=== PATIENT | male | born 1935 | race Caucasian/White ===

== ENCOUNTER 2016-12-30 12:29 | Observation (INO) | payer MEDICARE, BC ==
--- NOTE | ~2016-12-30 | DS ---
Discharge Summary [facility] [address] [place]. [address] NAME: ALDAIR HILL : 37 STATUS : DIS Wilver PAT#: [id number] AGE: 81 ADM/REG DATE : 12/30/16 MR#: [id number] REPORT SERV DATE: 01/01/17 DICTATED BY: JR. HASTINGS WILLIAM JOHN DATE: 12/31/16 REPORT STATUS : Draft TRANSCRIBED BY: MODL DATE: 12/31/16 ADMISSION DATE: 12/30/2016 DISCHARGE DATE: 12/31/2016 DISCHARGE DIAGNOSES: 1. Clostridium difficile colitis. 2. Hematochezia. 3. Nausea, vomiting, and diarrhea. 4. History of prostate cancer with metastases. 5. History of hypertension. OPERATIONS, PROCEDURES, AND TREATMENTS: Include: 1. CT of the abdomen and pelvis done 12/30/2016, which showed known metastatic carcinoma with stable adenopathy in the lower chest, abdomen, and pelvis without bowel obstruction or inflammation. There were colonic diverticula without diverticulitis. 2. C. diff which was positive. 3. Cryptosporidium was negative. Giardia was negative. Fecal leukocytes were negative. CONSULTING PHYSICIAN: Dr. Blake Ford, who plans colonoscopy after this dictation is completed. DISCHARGE MEDICATIONS: Include: 1. Multivitamin tablet orally daily. 2. Zofran 8 mg orally daily p.r.n. 3. Zoloft 100 mg orally daily. 4. Vancomycin 125 mg per 5 mL, give 125 mg q.6 hours for 14 days. 5. Prednisone 10 mg orally daily. 6. Norvasc 5 mg orally daily. 7. Phenergan 25 mg orally daily as needed. 8. Calcium plus D, one tablet orally daily. 9. Naprosyn 220 mg orally daily as needed. 10.Nasonex two sprays in each nostril daily. 11.Polyethylene glycol solution ophthalmologic twice a day p.r.n. HOSPITAL COURSE: The patient is a 81-year-old white male who presented to the emergency room on 12/30/2016 with complaint of nausea, vomiting, and bloody stool. The patient is quite vigorous and said that on the afternoon of admission he developed nausea, vomiting, followed by diarrhea which turned bloody. The patient's exam was overall unremarkable. CT of the abdomen and pelvis as detailed above. His admission hemoglobin was 13.5. The patient is admitted to the Clinical Decision Unit and was seen in consultation by Gastroenterology who recommended infectious labs of which Clostridium difficile became positive. The patient was started on oral vancomycin with near resolution of his diarrhea by the next morning. The patient is scheduled for colonoscopy later today. After that procedure, he will be discharged home if okay with GI. The remainder of the patient's health problems remained stable and were not addressed. For discharge exam and laboratory, Discharge Summary [address] [address] NAME: ALDAIR HILL : 37 STATUS : DIS Wilver PAT#: [id number] AGE: 81 ADM/REG DATE : 12/30/16 MR#: [id number] REPORT SERV DATE: 01/01/17 DICTATED BY: JR. HASTINGS WILLIAM JOHN DATE: 12/31/16 REPORT STATUS : Draft TRANSCRIBED BY: MAUREEN DATE: 12/31/16 please see daily progress note. DISCHARGE DIET: Regular. ACTIVITY: As tolerated. FOLLOWUP: With Dr. Vee Fairchild in two to four weeks. This discharge took less than 30 minutes. ALFREDA/MAUREEN Blake Hastings Jr, MD / [id number] CC: Blake Hastings Jr, MD Helen Furr, M.D.
--- NOTE | ~2016-12-30 | HP ---
History And Physical [address] [address] NAME: ALDAIR HILL : 37 STATUS : ADM Wilver PAT#: [id number] AGE: 81 ADM/REG DATE : 12/30/16 MR#: [id number] REPORT SERV DATE: 12/30/16 DICTATED BY: MARTIN PERRY DATE: 12/30/16 REPORT STATUS : Draft TRANSCRIBED BY: MODL DATE: 12/30/16 DATE OF ADMISSION: 12/30/2016 CHIEF COMPLAINT: Bright red blood per rectum. HISTORY OF PRESENT ILLNESS: The patient is a very pleasant 81-year-old white male. He reports he was in his usual state of health until yesterday afternoon when he developed intractable nausea and vomiting. He vomited for several hours. Vomiting resolved and he developed what he thought was diarrhea. He noted, however, he had bloody stools with clots present. He finally became concerned and reported to the ER this morning. He did not have any documented fevers he states. He did not have much in the way of abdominal pain. He had some soreness. His is ill. He is feeling well. He has had no ill contacts. They seem to eat the same foods. There was a concern of food poisoning since he had nausea and vomiting. His last colonoscopy he states was about 2-1/2 years ago. It was done in [place]. He does not have an established GI doctor. He does suffer from metastatic prostate cancer for which he has failed previous treatments and now is off all treatment. PAST MEDICAL HISTORY: 1. Hypertension. 2. Metastatic prostate CA. 3. Depression. 4. Osteoarthritis. 5. Colon polyps. SURGICAL HISTORY: Bilateral inguinal hernia repair, right total knee arthroplasty, and a left wrist surgery. FAMILY HISTORY: Positive for hypertension and CVA. ALLERGIES: NO KNOWN DRUG ALLERGIES. SOCIAL HISTORY: He quit smoking 40+ years ago. He only uses occasional alcohol at this point. He is . His is at bedside. HOME MEDICATIONS: Reviewed and attached. REVIEW OF SYSTEMS: Full 10-point review of systems was obtained, pertinent positives are mentioned in the HPI. PHYSICAL EXAMINATION: VITAL SIGNS: Current blood pressure is 129/67. Other vital signs; temperature is 98.3, sat is 94, respiratory rate is 20. Pulse is in the 70s, by my count, it is recorded as 16 and the vitals it is incorrect. I auscultated his pulse while in the room as he was not hooked up to the monitor. GENERAL: Well-developed white male, in no apparent distress. HEENT: Normocephalic, atraumatic. Throat is clear. History And Physical [facility] [address] [place]. [address] NAME: ALDAIR HILL : 37 STATUS : ADM Wilver PAT#: [id number] AGE: 81 ADM/REG DATE : 12/30/16 MR#: [id number] REPORT SERV DATE: 12/30/16 DICTATED BY: MARTIN PERRY DATE: 12/30/16 REPORT STATUS : Draft TRANSCRIBED BY: MAUREEN DATE: 12/30/16 NECK: Supple. HEART: Regular rate and rhythm. LUNGS: Grossly clear. ABDOMEN: Soft, nondistended, nontender. Normoactive bowel sounds are noted. He was Hemocculted by the ER which was positive. I also saw picture of the actual stool which was bright red blood with clots present. EXTREMITIES: Warm and dry and he has no peripheral edema. LABORATORY AND X-RAY DATA: Urinalysis shows [address] abdomen and pelvis shows known metastatic prostate cancer with stable adenopathy in the lower chest, abdomen, and pelvis. No bowel obstruction or bowel wall inflammation. There are diverticula, but no diverticulitis. Sodium is 140, potassium 3.7, chloride is 106, CO2 is 23, BUN and creatinine 19 and 0.76, glucose is 131. LFTs were normal. Albumin is 3.4. Lipase is normal. CBC: H and H are 13.5 and 38, white count is 14.7, platelets are 156. ASSESSMENT AND PLAN: 1. Nausea and vomiting with associated diarrheal stools, now with bright red blood per rectum. Nausea and vomiting have resolved. Certainly, given the time course of events, it sounds like this could be an infectious etiology since he had nausea and vomiting, then developed diarrheal stools with blood present. We will send off stool for Clostridium difficile, ova and parasite, and culture. Must also consider just simple lower gastrointestinal bleeding. However, this does not explain the nausea and vomiting very well. I am going to hydrate him overnight. Place him on a proton pump inhibitor. Hold nonsteroidal anti-inflammatory drugs and any aspirin products. We will hydrate him aggressively. We will transfuse for any hemoglobin less than 8. I am going to hold off on empiric antibiotics for now. We will have Gastroenterology see him in consultation and make further plan. We will keep him n.p.o. for now. 2. History of metastatic prostate cancer. 3. History of hypertension. Holding antihypertensives given bright red blood per rectum. 4. Deep venous thrombosis prophylaxis. Hold off on anticoagulants for now since he has active bleeding. 5. Disposition. Pending above. BRITTNI/MAUREEN Martin Perry M.D. / [id number] CC: Martin Perry M.D. History And Physical [address] [address] NAME: ALDAIR HILL : 37 STATUS : ADM Wilver PAT#: [id number] AGE: 81 ADM/REG DATE : 12/30/16 MR#: [id number] REPORT SERV DATE: 12/30/16 DICTATED BY: MARTIN PERRY DATE: 12/30/16 REPORT STATUS : Draft TRANSCRIBED BY: MAUREEN DATE: 12/30/16 Daren Reddy IV, M.D.
--- NOTE | ~2016-12-30 | EGD ---
EGD REPORT [facility] [address] [place] [address] NAME: KULDIP HILL : 37 STATUS : ADM Wilver PAT#: [id number] AGE: 81 ADM/REG DATE : 12/30/16 MR#: [id number] REPORT SERV DATE: 12/31/16 DICTATED BY: BLAKE CUNNINGHAM DATE: 12/31/16 REPORT STATUS : Draft [facility]ANSCR[facility]ED BY: [facility] DATE: 12/31/16 Endoscopy Center Patient Name: Kuldip Hill Date of : 1935 Attending MD: BLAKE CUNNINGHAM MD Procedure Date No Time: 12/31/2016 Procedure: Colonoscopy Indications: Hematochezia Referring MD: BELKIS VALDOVINOS Medicines: Monitored Anesthesia Care Complications: No immediate complications. Estimated blood loss: Minimal. Procedure: Pre-Anesthesia Assessment: - ASA Grade Assessment: III - A patient with severe systemic disease. After I obtained informed consent, the scope was passed under direct vision. Throughout the procedure, the patient's blood pressure, pulse, and oxygen saturations were monitored continuously. The CF [id number] was introduced through the anus and advanced to the cecum, identified by appendiceal orifice and ileocecal valve. The colonoscopy was performed without difficulty. The patient tolerated the procedure well. The quality of the bowel preparation was fair. Findings: The perianal and digital rectal examinations were normal. Pertinent negatives include no palpable rectal lesions. Diffuse moderate inflammation characterized by congestion (edema), erythema, friability, loss of vascularity and mucus was found from 30 to 60 cm proximal to the anus. Biopsies were taken with a cold forceps for histology. Estimated blood loss was minimal. A semi-sessile, non-bleeding polyp was found in the cecum. The polyp was 5 mm in size. Polypectomy was not attempted due to an incomplete examination, inadequate bowel preparation and poor endoscopic visualization. Multiple medium-mouthed diverticula were found in the sigmoid colon. The exam was otherwise without abnormality on direct and retroflexion views. Impression: - Diffuse moderate inflammation was found from 30 to 60 cm proximal to the anus. Biopsied. - One 5 mm, non-bleeding polyp in the cecum. Resection not attempted given bleeding and suboptimal prep. - Diverticulosis in the sigmoid colon. EGD REPORT [address] [address] NAME: KULDIP HILL : 37 STATUS : ADM Wilver PAT#: [id number] AGE: 81 ADM/REG DATE : 12/30/16 MR#: [id number] REPORT SERV DATE: 12/31/16 DICTATED BY: BLAKE CUNNINGHAM DATE: 12/31/16 REPORT STATUS : Draft TRANSCRIBED BY: [employer] DATE: 12/31/16 - The examination was otherwise normal on direct and retroflexion views. Recommendation: - Soft diet today. - Vancocin (vancomycin) 125 mg PO QID for 2 weeks. - Repeat colonoscopy within 6-12 months for polyp resection and surveillance Procedure Code(s): --- Professional --- 18227, Colonoscopy, flexible, proximal to splenic flexure; with biopsy, single or multiple Diagnosis Code(s): --- Professional --- K52.9, Noninfective gastroenteritis and colitis, unspecified D12.0, Benign neoplasm of cecum K57.30, Diverticulosis of large intestine without perforation or abscess without bleeding K92.1, Melena CPT copyright 2013 [employer]. All rights reserved. The codes documented in this report are preliminary and upon border patrol officer review may be revised to meet current compliance requirements. Blake Cunningham MD BLAKE CUNNINGHAM MD 12/31/2016 11:58 AM This report has been signed electronically. Number of Addenda: 0 Note Initiated On: 12/31/2016 11:14 AM Scope Withdrawal Time 0 hours 8 minutes 33 seconds [id number] [place] [address] [id number]
--- NOTE | ~2016-12-30 | CN ---
Consultation Report [facility] [address] [place]. [address] NAME: KULDIP HILL : 37 STATUS : ADM Wilver PAT#: [id number] AGE: 81 ADM/REG DATE : 12/30/16 MR#: [id number] REPORT SERV DATE: 12/30/16 DICTATED BY: ANNIKA TOLEDO DATE: 12/30/16 REPORT STATUS : Draft TRANSCRIBED BY: MODLinden DATE: 12/30/16 GI CONSULTATION. DATE OF CONSULTATION: 12/30/2016 REASON FOR CONSULTATION: Evaluation and management of lower GI bleeding. HISTORY OF PRESENT ILLNESS: Mr. Kuldip Hill is a very pleasant, 81-year-old male patient, who was admitted on 12/30/2016 for a chief complaint of nausea, vomiting as well as bright red blood per rectum. The patient gives history of symptom onset yesterday, 12/29/2016. He states initially in the early part of the day, he had nausea with vomiting. The states he vomited up everything that he has had for lunch. He had some mild vague abdominal discomfort, lower abdominal cramps. He started to have diarrhea. He states he had multiple diarrheal stools, was up and down all throughout the night, began to pass nothing, but bright red blood per rectum. Secondary to his passage of blood, he came to the hospital for further evaluation. He had a CT scan done on admission without contrast, this showed that the patient had known metastatic prostate carcinoma with stable adenopathy in the lower chest, abdomen, and pelvis. No bowel obstruction or bowel wall inflammation. He has diverticulosis without any active diverticulitis being seen. He had admission white blood cell count of 14.7 with a hemoglobin of 13.5, hematocrit of 38.0. He states that he has not had any known fevers. He has no chilling. He denies melena. He states he did not throw up blood or coffee-ground emesis. He has not been around any sick contacts. He states from time to time, he has nausea secondary to undergoing chemotherapy for his prostate cancer, but typically, he has no problems with nausea, vomiting, GERD, or indigestion. He takes Aleve, but very infrequently. Presently, he is feeling better. He has not had any nausea, but he still has a little bit of abdominal discomfort. I have discussed with the patient and the . We will plan for colonoscopy to be done tomorrow by Dr. Ford. Risks, benefits, alternatives, and complications were detailed for him to include, but not limited to risk of bleeding, perforation, infection, reaction to medication, as well as cardiac and pulmonary side effects. He gives consent to proceed. The patient states that he has had multiple colonoscopies in the past while living in [place]. He and his recently moved here two years ago secondary to warmer climate. He cannot remember anything abnormal other than colon polyps, which were removed. He is unsure of what type they were. He has not had a colonoscopy or any GI evaluation since being in the [facility]. PAST MEDICAL HISTORY: Positive for diverticulosis; colon polyps; hypertension; depression; prostate cancer, treated 10-15 years ago with radiation seeds; GERD; osteoarthritis. SURGICAL HISTORY: Bilateral inguinal hernia repair, right total knee replacement, left wrist fracture. PROCEDURES: Colonoscopies. FAMILY HISTORY: Noncontributory from a gastrointestinal standpoint. Consultation Report [address] [address] NAME: KULDIP HILL : 37 STATUS : ADM Wilver PAT#: [id number] AGE: 81 ADM/REG DATE : 12/30/16 MR#: [id number] REPORT SERV DATE: 12/30/16 DICTATED BY: ANNIKA TOLEDO DATE: 12/30/16 REPORT STATUS : Draft TRANSCRIBED BY: MAUREEN DATE: 12/30/16 ALLERGIES: NO KNOWN DRUG ALLERGIES. HOME MEDICATIONS: Norvasc, Nasonex, multivitamin, Aleve, Zofran, Systane, prednisone, Phenergan, Zoloft, and calcium. REVIEW OF SYSTEMS: A 10-point review of systems has been obtained with pertinent positives being addressed in the history of present illness. PHYSICAL EXAMINATION: VITAL SIGNS: Temperature is 98.3, pulse of 76, respiratory rate of 16, blood pressure of 128/72. NEURO: Reveals an alert, male, resting in bed with no focal deficits being noted. GENERAL: Cooperative, in no apparent distress. Awake, alert, and oriented x3. HEAD, EARS, EYES, NOSE, AND THROAT: Anicteric. Pupils equal, round, reactive to light and accommodation. Normocephalic and atraumatic. NECK: No JVD. No palpable nodes. LUNGS: Clear anteriorly with normal respiratory effort exhibited. Equal expansion. CARDIOVASCULAR SYSTEM: Regular rate and rhythm. S1 and S2. No murmurs, rubs, gallops, S3, or S4 appreciated. ABDOMEN: Soft, nontender, nondistended with no rebound, guarding, or organomegaly elicited on exam. He has active bowel sounds in all four quadrants. EXTREMITIES: No edema. Normal distal pulses. SKIN: Warm, dry, and intact. PSYCHIATRIC: Normal mood. Normal affect. PERTINENT LABORATORY DATA: Sodium 140, potassium 3.7, BUN is 19, creatinine 0.76. White count 14.7, hemoglobin 13.5, hematocrit 38. ASSESSMENT: 1. Lower gastrointestinal bleeding. Differential diagnosis includes diverticular bleed, colitis, proctitis, neoplasm. 2. Nausea and vomiting, resolved. 3. Leukocytosis, question reactive. 4. Known prostate cancer with metastatic disease. PLAN: 1. Obtain stool studies for C diff, ova and parasites, and cultures and sensitivities as well as white blood cells. 2. Clear liquid diet. N.p.o. after midnight. 3. GoLYTELY bowel prep. 4. Colonoscopy in the morning with Dr. Ford. 5. Add PPI. 6. Scheduled Zofran. Consultation Report [address] [place]. [address] NAME: KULDIP HILL : 37 STATUS : ADM Wilver PAT#: [id number] AGE: 81 ADM/REG DATE : 12/30/16 MR#: [id number] REPORT SERV DATE: 12/30/16 DICTATED BY: ANNIKA TOLEDO DATE: 12/30/16 REPORT STATUS : Draft TRANSCRIBED BY: MAUREEN DATE: 12/30/16 7. Follow labs. Other recommendations to follow endoscopy. MESFIN/MAUREEN CONCHIS Macias / [id number] CC: Daren Hinojosa M.D.
[2016-12-30 10:21] LABS: BASOPHILS 0.1 %; BASOPHILS ABSOLUTE 0.01 10/3/uL (0.0-0.16); EOSINOPHILS 0.3 %; EOSINOPHILS ABSOLUTE 0.04 10/3/uL (0.0-0.53); IMMATURE GRANULOCYTES 0.4 %; IMMATURE GRANULOCYTES ABSOLUTE 0.06 10/3/uL (0.0-0.11); LYMPHOCYTES 2.8 %; LYMPHOCYTES ABSOLUTE 0.41 10/3/uL (0.67-4.30); MEAN CORPUS HGB CONC 35.5 g/dL (32.0-36.0); MEAN CORPUSCULAR HEMOGLOB 31.4 pg (26.0-34.0); MEAN PLATELET VOLUME 9.6 fL (9.2-13.0); MONOCYTES 6.2 %; MONOCYTES ABSOLUTE 0.91 10/3/uL (0.21-1.20); NEUTROPHILS 90.2 %; NEUTROPHILS ABSOLUTE 13.31 10/3/uL (2.02-8.40); PLATELET COUNT 156 10/3/uL (150-400); RBC DISTRIBUTION WIDTH 15.4 % (12.0-16.0)
[2016-12-30 10:22] LABS: ER CBC TAT 0 Hrs 05 Mins; HEMOGLOBIN 13.5 g/dL (13.6-17.8); MEAN CORPUSCULAR VOLUME 88.4 fL (80-100); WHITE BLOOD CELLS 14.7 10/3/uL (4.5-10.5)
[2016-12-30 10:23] LABS: MANUAL DIFF NO %
[2016-12-30 10:32] LABS: ALBUMIN 3.4 G/DL (3.5-5.0); CHLORIDE, SERUM 106 MMOL/L (96-112); CO2 (CARBON DIOXIDE) 23 MMOL/L (24-34); CREATININE 0.76 MG/DL (0.70-1.30); GFR AFRICAN AMERICAN 101 ML/MIN (>=60); GFR NON AFRICAN AMERICAN 87 ML/MIN (>=60); POTASSIUM, SERUM 3.7 MMOL/L (3.5-5.3); SGOT(AST) 49 U/L (5-40); SGPT(ALT) 30 U/L (5-65); SODIUM, SERUM 140 MMOL/L (135-148)
[2016-12-30 10:34] LABS: A/G RATIO 1.1 (0.7-1.9); ALKALINE PHOSPHATASE 67 U/L (45-117); BUN (BLOOD UREA NITROGEN) 19 MG/DL (6-23); CALCIUM, SERUM 8.6 MG/DL (8.5-10.4); GLOBULIN 3.2 G/DL (2.5-4.1); GLUCOSE, SERUM 131 MG/DL (60-99); TOTAL BILIRUBIN 1.1 MG/DL (0-1.2); TOTAL PROTEIN 6.6 G/DL (6.0-8.5)
[2016-12-30 12:22] LABS: WBC (NOT ORDERED) (RFLEX) 0 (0-5)
[~2016-12-30 12:29] MED LIST: ALEVE220 MG PO; CHEMO INFUSION IV; CLARIT10 PO; DEX4 PO; NEULASTA SC; NORV5 PO; PR25 PO; ZOFRAN8 PO; ZOL100 PO
[2016-12-30 12:38] LABS: ASCORBIC ACID (UR NOT ORDER) NEG (NEG); BILIRUBIN, URINE NEGATIVE (NEG); KETONE, URINE NEGATIVE (NEG); LEUKOCYTE ESTERASE(NOT OR NEG (NEG); NITRITE (URINE) NEG (NEG)
[2016-12-30] MEDS ORDERED: ZOL100 PO (13:04)
[2016-12-30] MEDS ORDERED: NORV5 PO (13:04)
[2016-12-30] MEDS ORDERED: P10 PO (13:04)
[2016-12-30] MEDS ORDERED: ZOFRAN8 PO (13:05)
[2016-12-30] MEDS ORDERED: PR25 PO (13:05)
[2016-12-30] MEDS ORDERED: NASONEX NAS (13:06)
[2016-12-30] MEDS ORDERED: ALEVE220 MG PO (13:06)
[2016-12-30] MEDS ORDERED: MULTIVIT/MIN PO (13:06)
[2016-12-30] MEDS ORDERED: CALCIUM + VIT D PO (13:06)
[2016-12-30] MEDS ORDERED: SYSTANE OPH (13:07)
[2016-12-30 17:32] LABS: HEMATOCRIT 35.5 % (40.0-51.0); HEMOGLOBIN 12.3 g/dL (13.6-17.8)
[2016-12-31 02:15] LABS: HEMATOCRIT 39.2 % (40.0-51.0); HEMOGLOBIN 13.5 g/dL (13.6-17.8)
[2016-12-31 04:57] LABS: BASOPHILS 0.2 %; EOSINOPHILS 0.6 %; EOSINOPHILS ABSOLUTE 0.07 10/3/uL (0.0-0.53); HEMOGLOBIN 11.9 g/dL (13.6-17.8); IMMATURE GRANULOCYTES 0.3 %; LYMPHOCYTES 7.3 %; LYMPHOCYTES ABSOLUTE 0.83 10/3/uL (0.67-4.30); MEAN CORPUS HGB CONC 34.8 g/dL (32.0-36.0); MEAN CORPUSCULAR HEMOGLOB 31.8 pg (26.0-34.0); MEAN PLATELET VOLUME 9.7 fL (9.2-13.0); MONOCYTES 6.4 %; MONOCYTES ABSOLUTE 0.73 10/3/uL (0.21-1.20); NEUTROPHILS 85.2 %; NEUTROPHILS ABSOLUTE 9.72 10/3/uL (2.02-8.40); PLATELET COUNT 142 10/3/uL (150-400); RBC DISTRIBUTION WIDTH 15.2 % (12.0-16.0); RED CELL COUNT 3.74 10/6/uL (4.7-6.1); WHITE BLOOD CELLS 11.4 10/3/uL (4.5-10.5)
[2016-12-31 04:58] LABS: BASOPHILS ABSOLUTE 0.02 10/3/uL (0.0-0.16); HEMATOCRIT 34.2 % (40.0-51.0); IMMATURE GRANULOCYTES ABSOLUTE 0.03 10/3/uL (0.0-0.11); MANUAL DIFF NO %; MEAN CORPUSCULAR VOLUME 91.4 fL (80-100)
[2016-12-31 05:07] LABS: INTERNATIONAL NORMAL RATI 1.2 UNITS (-); PARTIAL THROMBO TIME 33.7 SEC (22.5-37.2); PROTIME (NOT ORD) 14.9 SEC (12.0-14.5)
[2016-12-31 05:28] LABS: CHLORIDE, SERUM 110 MMOL/L (96-112); CO2 (CARBON DIOXIDE) 23 MMOL/L (24-34); CREATININE 0.53 MG/DL (0.70-1.30); GFR AFRICAN AMERICAN 117 ML/MIN (>=60); GFR NON AFRICAN AMERICAN 101 ML/MIN (>=60); POTASSIUM, SERUM 3.6 MMOL/L (3.5-5.3); SODIUM, SERUM 142 MMOL/L (135-148)
[2016-12-31 05:29] LABS: BUN (BLOOD UREA NITROGEN) 9 MG/DL (6-23); GLUCOSE, SERUM 86 MG/DL (60-99)
[2016-12-31] MEDS ORDERED: VANCOCIN HCL125 MG PO (14:44)
== END 2016-12-31 15:00 | disposition home or self-care (01) ==
LOC: ER 12:29 → CDU1 12:47
PROVIDERS: Emergency Medicine; Internal Medicine; Internal Medicine Gastroenterology
PROC: 0DBH8ZX Excision of Cecum, Via Natural or Artificial Opening Endoscopic, Diagnostic (ICD-10-PCS; principal; 2016-12-31 08:00)
DX: K52.9 Noninfective gastroenteritis and colitis, unspecified (principal); K57.30 Diverticulosis of large intestine without perforation or abscess without bleeding; I10 Essential (primary) hypertension; D72.829 Elevated white blood cell count, unspecified; F32.9 Major depressive disorder, single episode, unspecified; M19.90 Unspecified osteoarthritis, unspecified site; Z85.46 Personal history of malignant neoplasm of prostate; Z87.891 Personal history of nicotine dependence; Z86.010 Personal history of colon polyps; Z98.890 Other specified postprocedural states; Z82.49 Family history of ischemic heart disease and other diseases of the circulatory system; Z82.3 Family history of stroke; Z90.89 Acquired absence of other organs
CPT/HCPCS: 36415; 74176; 80048; 80053; 81001; 83690; 85014; 85018; 85025; 85610; 85730; 86850; 86900; 86901; 87045; 87046; 87046-59; 87328; 87329; 87493; 87493-59; 87899; 87899-59; 88305; 89055; 94640; 96374; 96375; 96376; 99285; A9270-GY; C9113; G0378; J2405